=== PATIENT | male | born 1980 | race African-American/Black ===

== ENCOUNTER 2017-06-08 08:52 | Emergency (ER) | payer OTHER ==
[2017-06-11 00:06] LABS: HSV TYPE I IgM AB <1:10 titer (<1:10); HSV TYPE II IgG SPECIFIC <0.91 index (0.00-0.90); HSV TYPE II IgM ABY <1:10 titer (<1:10)
== END 2017-06-08 09:28 | disposition home or self-care (01) ==
LOC: M ED 08:52
DX: B00.9 Herpesviral infection, unspecified (principal)
CPT/HCPCS: 86695